=== PATIENT | female | born 1995 ===

== ENCOUNTER 2020-09-18 17:19 | Inpatient (IN) | payer BC ==
[2020-09-18] MEDS ORDERED: Misoprostol 200 MCG Tab PO PRN (17:51)
[2020-09-18] MEDS ORDERED: Water For Irrigation,Sterile 1,000 ML Container IRR PRN (17:51)
[2020-09-18] MEDS ORDERED: Tranexamic Acid 1,000 MG in Sodium Chloride 0.9% 100 ML IV PRN (17:51)
[2020-09-18] MEDS ORDERED: Sodium Chloride 0.9% 2.5 ML Syringe FLUSH PRN (17:51)
[2020-09-18] MEDS ORDERED: Lidocaine 1% 50 ML MDV INJECT PRN (17:51)
[2020-09-18] MEDS ORDERED: Butorphanol 1 MG/ML SDV IVPUSH PRN (17:51)
[2020-09-18] MEDS ORDERED: Sodium Chloride 0.9% 10 ML SDV IV PRN (17:51)
[2020-09-18] MEDS ORDERED: Carboprost Tromethamine 250 MCG/1 ML Amp IM PRN (17:51)
[2020-09-18] MEDS ORDERED: Sodium Chloride 0.9% 10 ML Syringe FLUSH PRN (17:51)
[2020-09-18] MEDS ORDERED: Methylergonovine 0.2 MG/1 ML Amp IM PRN (17:51)
[2020-09-18] MEDS ORDERED: Nalbuphine 10 MG/1 ML Vial IVPUSH PRN (17:51)
[2020-09-18] MEDS ORDERED: Misoprostol 25 MCG (1/4 of 100 MCG) Tab VAG PRN (17:55)
[2020-09-18] MEDS ORDERED: Terbutaline 1 MG/ML SDV SUBCUT PRN (17:55)
[2020-09-18] MEDS ORDERED: Oxytocin/0.9 % Sodium Chloride 30 UNIT/500 ML BAG IV SCH ×2 (18:00)
[2020-09-18] MEDS: Misoprostol 25 MCG (1/4 of 100 MCG) Tab VAG PRN (20:03)
[2020-09-19] MEDS: Misoprostol 25 MCG (1/4 of 100 MCG) Tab VAG PRN (00:21)
[2020-09-19] MEDS: Lactated Ringers 1,000 ML IV SCH ×3 (05:58→15:06)
[2020-09-19] MEDS ORDERED: Ropivacaine HCl/PF 100 ML ONE (12:15)
[2020-09-19] MEDS ORDERED: fentaNYL 100 MCG/2 ML SDV ONE (12:15)
[2020-09-19] MEDS ORDERED: Ropivacaine 0.2% PF 2 MG/ML 20 ML SDV ONE (12:15)
--- NOTE | 2020-09-19 12:56 | PCM.PREANE ---
Preanesthetic Assessment - Procedure Proposed Procedure: DARRYL - Anesthesia/Transfusion/Family Hx Anesthesia History: Prior Anesthesia Without Reaction Transfusion History: No Prior Transfusion(s) - Review of Systems General: No Symptoms Pulmonary: No Symptoms Cardiovascular: No Symptoms Gastrointestinal: No Symptoms Neurological: No Symptoms Other: Reports: Anxiety - Physical Assessment NPO Status Date: 09/19/20 NPO Status Time: 12:00 Height: 1.8 m Weight: 96.615 kg ASA Class: 1 Mental Status: Alert & Oriented x3 Airway Class: Mallampati = 1 Dentition: Reports: Normal Dentition Thyro-Mental Finger Breadths: 3 Mouth Opening Finger Breadths: 3 ROM/Head Extension: Full Lungs: Clear to Auscultation Cardiovascular: Regular Rate - Lab Values: Laboratory Last Values WBC 12.65 K/uL (4.0-11.0) H 09/18/20 17:30 RBC 4.08 M/uL (4.30-5.90) L 09/18/20 17:30 Hgb 13.0 g/dL (12.0-16.0) 09/18/20 17:30 Hct 39.6 % (36.0-46.0) 09/18/20 17:30 MCV 97.1 fL (80.0-98.0) 09/18/20 17:30 MCH 31.9 pg (27.0-32.0) 09/18/20 17:30 MCHC 32.8 g/dL (31.0-37.0) 09/18/20 17:30 RDW Std Deviation 46.8 fl (28.0-62.0) 09/18/20 17:30 RDW Coeff of Juaquin 13 % (11.0-15.0) 09/18/20 17:30 Plt Count 203 K/uL (150-400) 09/18/20 17:30 MPV 10.90 fL (7.40-12.00) 09/18/20 17:30 Nucleated RBC % 0.0 /100WBC 09/18/20 17:30 Nucleated RBCs # 0 K/uL 09/18/20 17:30 SARS-CoV-2 RNA (ANTONIA) NEGATIVE (NEGATIVE) 09/18/20 17:40 Blood Type O POSITIVE 09/18/20 17:30 Antibody Screen NEGATIVE 09/18/20 17:30 - Allergies Allergies/Adverse Reactions: Allergies Allergy/AdvReac Type Severity Reaction Status Date / Time No Known Allergies Allergy Verified 09/18/20 17:50 - Blood Blood Available: No Product(s) Available: None - Anesthesia Plan Pre-Op Medication Ordered: None - Acknowledgements Anesthesia Type Planned: Epidural Pt an Appropriate Candidate for the Planned Anesthesia: Yes Alternatives and Risks of Anesthesia Discussed w Pt/Guardian: Yes Pt/Guardian Understands and Agrees with Anesthesia Plan: Yes Additional Comments: , 5cm, active labor. Pain7/10. Discussed, ? answered, permit signed, wishes to proceed. 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: Musculoskeletal History: Reports: Fracture Neurological History: Reports: Concussion Psychiatric History: Reports: None Endocrine/Metabolic History: Reports: None Hematologic History: Reports: None Immunologic History: Reports: None Oncologic (Cancer) History: Reports: None Dermatologic History: Reports: None - Infectious Disease History Infectious Disease History: Reports: Chicken Pox - Past Surgical History HEENT Surgical History: Reports: None GI Surgical History: Reports: None Female Surgical History: Reports: None Musculoskeletal Surgical History: Reports: None - SUBSTANCE USE Tobacco Use Status *Q: Never Tobacco User Second Hand Smoke Exposure: No Recreational Drug Use History: No - CURRENT (IN HOUSE) MEDS Current Meds: Current Medications Butorphanol Tartrate (Stadol) 1 mg IVPUSH Q1H PRN PRN Reason: Pain Carboprost Tromethamine (Hemabate Ds) 250 mcg IM ASDIRECTED PRN PRN Reason: Post Hemorrhage Oxytocin/Sodium Chloride (Oxytocin 30 Unit/500 Ml-Ns) 30 unit in 500 mls @ 500 mls/hr IV TITRATE HUI Tranexamic Acid 1,000 mg/ (Sodium Chloride) 110 mls @ 660 mls/hr IV ONETIME PRN PRN Reason: Bleeding Lactated Ringer's (Ringers, Lactated) 1,000 mls @ 150 mls/hr IV ASDIRECTED HUI Last Admin: 09/19/20 11:27 Dose: 150 mls/hr Documented by: Oxytocin/Sodium Chloride (Oxytocin 30 Unit/500 Ml-Ns) 30 unit in 500 mls @ 2 mls/hr IV TITRATE HUI; Protocol Last Titration: 09/19/20 10:44 Dose: 14 munits/min, 14 mls/hr Documented by: Lidocaine HCl (Xylocaine 1%) 50 ml INJECT ONETIME PRN PRN Reason: Laceration repair Methylergonovine Maleate (Methergine) 0.2 mg IM ASDIRECTED PRN PRN Reason: Post Hemorrhage Misoprostol (Cytotec) 200 mcg PO ONETIME PRN PRN Reason: Post Hemorrhage Misoprostol (Cytotec) 25 mcg VAG ONETIME PRN PRN Reason: Cervical Ripening Misoprostol (Cytotec) 25 mcg VAG Q4H PRN PRN Reason: Cervical Ripening Last Admin: 09/19/20 00:21 Dose: 25 mcg Documented by: Nalbuphine HCl (Nubain) 10 mg IVPUSH Q1H PRN PRN Reason: Pain (severe 7-10) Sodium Chloride (Saline Flush) 10 ml FLUSH ASDIRECTED PRN PRN Reason: Keep Vein Open Sodium Chloride (Saline Flush) 2.5 ml FLUSH ASDIRECTED PRN PRN Reason: Keep Vein Open Sodium Chloride (Normal Saline) 10 ml IV ASDIRECTED PRN PRN Reason: IV Use Sterile Water (Sterile Water For Irrigation) 1,000 ml IRR ASDIRECTED PRN PRN Reason: delivery Terbutaline Sulfate (Brethine) 0.25 mg SUBCUT ASDIRECTED PRN PRN Reason: Tacysystole Discontinued Medications Fentanyl (Sublimaze) Confirm Administered Dose 100 mcg .ROUTE .STK-MED ONE Stop: 09/19/20 12:16 Ropivacaine (Naropin 0.2%) Confirm Administered Dose 100 mls @ as directed .ROUTE .STK-MED ONE Stop: 09/19/20 12:16 Ropivacaine (Naropin 0.2%) Confirm Administered Dose 20 ml .ROUTE .STK-MED ONE Stop: 09/19/20 12:16
[2020-09-19] MEDS ORDERED: oxyCODONE 5 MG Tab PO PRN (18:35)
[2020-09-19] MEDS ORDERED: Lanolin 100% Cream 7 GM Tube TOP PRN (18:35)
[2020-09-19] MEDS ORDERED: Witch Hazel Medicated Pads 40/Jar TOP PRN (18:35)
[2020-09-19] MEDS ORDERED: Bisacodyl 10 MG Supp RECTAL PRN (18:35)
[2020-09-19] MEDS ORDERED: Benzocaine/Menthol 20%-0.5% Spray 78 GM Cannister TOP PRN (18:35)
--- NOTE | 2020-09-19 18:41 | PCM.DEL ---
L & D Note - General Info Date of Service: 09/19/20 Mother's Due Date: 09/23/20 - Delivery Note Labor: Induced by Oxytocin Cervical Ripening Method: Misoprostil Delivery Outcome: Livebirth Infant Delivery Method: Spontaneous Vaginal Delivery-Single Presentation: Left Occiput Anterior (JEWELS) Nuchal Cord: None Anesthesia Type: Epidural, Local Anesthetic: Lidocaine (Xylocaine) 1% Plain Amniotic Fluid Description: Clear Episiotomy Type: None Laceration: 2nd Degree, Periurethral (right) Suture type: Vicryl Suture size: 2-0 Placenta: Intact, Spontaneous Cord: 3 Vessels Estimated Blood Loss: 400 Resuscitation Needed: Yes : Suctioned, Stimulated, Warmed Provider: Yumiko Daly Score 1 min: 7 Score 5 min: 9 Delivery Comments (Free Text/Narrative):: Weight 4210g, male - General Info Date of Service: 09/19/20 - Patient Data Weight - Most Recent: 96.615 kg Lab Results Last 24 Hours: Laboratory Results - last 24 hr 09/18/20 09/18/20 Range/Units 17:30 17:40 SARS-CoV-2 RNA (ANTONIA) NEGATIVE (NEGATIVE) Blood Type O POSITIVE Antibody Screen NEGATIVE Med Orders - Current: Current Medications Acetaminophen (Tylenol Extra Strength) 1,000 mg PO Q6H PRN PRN Reason: Pain Benzocaine/Menthol (Dermoplast Pain Relief 20%-0.5% [place]) 78 gm TOP ASDIRECTED PRN PRN Reason: Perineal Comfort Measure Bisacodyl (Dulcolax) 10 mg RECTAL ONETIME PRN PRN Reason: Constipation Docusate Sodium (Colace) 100 mg PO BID PRN PRN Reason: Constipation Emollient Ointment (Lansinoh Hpa) 0 gm TOP ASDIRECTED PRN PRN Reason: Sore Nipples Oxytocin/Sodium Chloride (Oxytocin 30 Unit/500 Ml-Ns) 30 unit in 500 mls @ 500 mls/hr IV TITRATE HUI Lactated Ringer's (Ringers, Lactated) 1,000 mls @ 150 mls/hr IV ASDIRECTED HUI Last Admin: 09/19/20 15:06 Dose: 150 mls/hr Documented by: Oxytocin/Sodium Chloride (Oxytocin 30 Unit/500 Ml-Ns) 30 unit in 500 mls @ 2 mls/hr IV TITRATE HUI; Protocol Last Titration: 09/19/20 14:26 Dose: 2 munits/min, 2 mls/hr Documented by: Ibuprofen (Motrin) 800 mg PO Q8H PRN PRN Reason: Pain Lidocaine HCl (Xylocaine 1%) 50 ml INJECT ONETIME PRN PRN Reason: Laceration repair Misoprostol (Cytotec) 25 mcg VAG ONETIME PRN PRN Reason: Cervical Ripening Misoprostol (Cytotec) 25 mcg VAG Q4H PRN PRN Reason: Cervical Ripening Last Admin: 09/19/20 00:21 Dose: 25 mcg Documented by: Oxycodone HCl (Oxycodone) 5 mg PO Q2H PRN PRN Reason: Pain Sodium Chloride (Saline Flush) 10 ml FLUSH ASDIRECTED PRN PRN Reason: Keep Vein Open Sodium Chloride (Saline Flush) 2.5 ml FLUSH ASDIRECTED PRN PRN Reason: Keep Vein Open Sodium Chloride (Normal Saline) 10 ml IV ASDIRECTED PRN PRN Reason: IV Use Sterile Water (Sterile Water For Irrigation) 1,000 ml IRR ASDIRECTED PRN PRN Reason: delivery Terbutaline Sulfate (Brethine) 0.25 mg SUBCUT ASDIRECTED PRN PRN Reason: Tacysystole Witch Susana (Tucks) 1 pad TOP ASDIRECTED PRN PRN Reason: comfort care Discontinued Medications Butorphanol Tartrate (Stadol) 1 mg IVPUSH Q1H PRN PRN Reason: Pain Carboprost Tromethamine (Hemabate Ds) 250 mcg IM ASDIRECTED PRN PRN Reason: Post Hemorrhage Fentanyl (Sublimaze) Confirm Administered Dose 100 mcg .ROUTE .STK-MED ONE Stop: 09/19/20 12:16 Tranexamic Acid 1,000 mg/ (Sodium Chloride) 110 mls @ 660 mls/hr IV ONETIME PRN PRN Reason: Bleeding Ropivacaine (Naropin 0.2%) Confirm Administered Dose 100 mls @ as directed .ROUTE .STK-MED ONE Stop: 09/19/20 12:16 Methylergonovine Maleate (Methergine) 0.2 mg IM ASDIRECTED PRN PRN Reason: Post Hemorrhage Misoprostol (Cytotec) 200 mcg PO ONETIME PRN PRN Reason: Post Hemorrhage Nalbuphine HCl (Nubain) 10 mg IVPUSH Q1H PRN PRN Reason: Pain (severe 7-10) Ropivacaine (Naropin 0.2%) Confirm Administered Dose 20 ml .ROUTE .STK-MED ONE Stop: 09/19/20 12:16 - Problem List & Annotations (1) Vaginal delivery SNOMED Code(s): 399792927 Code(s): O80 - ENCOUNTER FOR FULL-TERM UNCOMPLICATED DELIVERY Status: Acute Current Visit: Yes - Problem List Review Problem List Initiated/Reviewed/Updated: Yes - My Orders Last 24 Hours: My Active Orders 09/18/20 17:51 Patient Status [ADT] Routine Lidocaine 1% [Xylocaine 1%] 50 ml INJECT ONETIME PRN Sodium Chloride 0.9% [Normal Saline] 10 ml IV ASDIRECTED PRN Sodium Chloride 0.9% [Saline Flush] 10 ml FLUSH ASDIRECTED PRN Sodium Chloride 0.9% [Saline Flush] 2.5 ml FLUSH ASDIRECTED PRN Water For Irrigation,Sterile [Sterile Water for Irrigation] 1,000 ml IRR ASDIRECTED PRN Peripheral IV Insertion Adult [OM.PC] Routine Resuscitation Status Routine 09/18/20 17:55 Bedrest Bathroom Privileges [RC] ASDIRECTED Notify Provider [RC] PRN Notify Provider [RC] PRN Notify Provider [RC] STAT Vital Signs [RC] PER UNIT ROUTINE Terbutaline [Brethine] 0.25 mg SUBCUT ASDIRECTED PRN miSOPROStoL [Cytotec] 25 mcg VAG ONETIME PRN miSOPROStoL [Cytotec] 25 mcg VAG Q4H PRN 09/18/20 18:00 Lactated Ringers [Ringers, Lactated] 1,000 ml IV ASDIRECTED Oxytocin/0.9 % Sodium Chloride [Oxytocin 30 Unit/500 ML-NS] 30 unit in 500 ml IV TITRATE Oxytocin/0.9 % Sodium Chloride [Oxytocin 30 Unit/500 ML-NS] 30 unit in 500 ml IV TITRATE Medication Administration Instruction [OM.PC] Q3H 09/19/20 Dinner Regular Diet [DIET] 09/19/20 18:35 Patient Status [ADT] Routine May Shower [RC] ASDIRECTED Notify Provider Vital Signs [RC] ASDIRECTED Up ad Karlene [RC] ASDIRECTED Vital Signs [RC] PER UNIT ROUTINE Acetaminophen [Tylenol Extra Strength] 1,000 mg PO Q6H PRN Benzocaine/Menthol [Dermoplast Pain Relief 20%-0.5% [place]] 78 gm TOP ASDIRECTED PRN Docusate Sodium [Colace] 100 mg PO BID PRN Ibuprofen [Motrin] 800 mg PO Q8H PRN Lanolin [Lansinoh HPA] See Dose Instructions TOP ASDIRECTED PRN bisacodyL [Dulcolax] 10 mg RECTAL ONETIME PRN oxyCODONE 5 mg PO Q2H PRN witch Susana [Tucks] 1 pad TOP ASDIRECTED PRN Assess Lochia [WOMSER] Per Unit Routine Assess Uterine Involution [WOMSER] Per Unit Routine Breast Pump [WOMSER] Per Unit Routine Peripheral IV Discontinue [OM.PC] Routine 09/19/20 18:36 Cooling Warming Measures [RC] ASDIRECTED Ice Therapy [OM.PC] Per Unit Routine Perineal Care [OM.PC] Per Unit Routine Sitz Bath [OM.PC] Per Unit Routine 09/20/20 05:11 HEMOGLOBIN/HEMATOCRIT,HH [HEME] Timed - Assessment Assessment:: 24yo s/p at 39w3d - Plan Plan:: Admit to unit for routine care. Plans to breastfeed, encouraged asking nursing for support.
--- NOTE | 2020-09-19 19:39 | OR ---
SURGEON: Romina Phillip MD DATE OF PROCEDURE: 09/19/2020 PREOPERATIVE DIAGNOSES: 1. 24-year-old, G1, P0 at 39 weeks and 2 days gestation. 2. Elective induction of labor. 3. GBS negative. 4. Estimated weight 4400 g. POSTOPERATIVE DIAGNOSES: 1. 24-year-old, G1, P1001 at 39 weeks and 3 days gestation. 2. GBS negative 3. Second degree perineal laceration. PROCEDURE: Spontaneous vaginal delivery and repair of second-degree perineal laceration. PRIMARY SURGEON: Romina Phillpi MD. ANESTHESIA: Epidural and local. ESTIMATED BLOOD LOSS: 400 mL. FINDINGS: Live male in left occiput anterior position. score 7 and 9 at one and five minutes respectively. Weight 4210 g. Placenta intact with 3-vessel cord. Second-degree perineal and right periurethral laceration. INDICATIONS: This is a 24-year-old, G1, P0 who presented at 39 weeks and 2 days gestation for a scheduled elective induction of labor. Estimated weight was 4400 g on ultrasound. Upon presentation, the patient's cervix was found to be closed. She received 2 doses of Cytotec for cervical ripening and she began tish. She was changed to Pitocin for induction of labor. She received an epidural for pain control at approximately 5 to 6 cm dilated. She underwent artificial rupture of membranes with clear fluid noted at 8 cm dilated. She progressed to complete cervical dilation and began pushing. DESCRIPTION OF PROCEDURE: The patient pushed for approximately 1-1/2 hour. The head was delivered followed quickly and easily by the shoulders and remainder of the body. The was placed on maternal abdomen. After approximately 60 seconds, the placenta then cut. The was then taken to the warmer for evaluation by the nurse and economic history teacher. The placenta then delivered intact with 3-vessel cord. Fundus was firm below the umbilicus. The perineum was inspected and a second-degree perineal laceration and a right periurethral laceration were noted. The perineal laceration was infiltrated with lidocaine for pain control and repaired to anatomy and hemostasis with 2-0 Vicryl. The periurethral laceration was hemostatic without repair. The patient and tolerated the delivery well. [id number] / MODL /[id number] CAROL ANN
[2020-09-19] MEDS: Ibuprofen 800 MG Tab PO PRN (20:47)
[2020-09-19] MEDS: Docusate Sodium 100 MG Cap PO PRN (20:48)
--- NOTE | 2020-09-20 09:29 | PCM48HPAN ---
Post Anesthesia Note - EVALUATION WITHIN 48HRS OF ANESTHETIC Vital Signs in Normal Range: Yes Patient Participated in Evaluation: Yes Respiratory Function Stable: Yes Airway Patent: Yes Cardiovascular Function Stable: Yes Hydration Status Stable: Yes Pain Control Satisfactory: Yes Nausea and Vomiting Control Satisfactory: Yes Mental Status Recovered: Yes Vital Signs: Last Vital Signs Temp 36.4 C 09/20/20 09:19 Pulse 73 09/20/20 09:19 Resp 16 09/20/20 09:19 BP 112/57 L 09/20/20 09:19 Pulse Ox 96 09/20/20 09:19 - COMMENTS/OBSERVATIONS Free Text/Narrative:: Doing well. No problems noted.
--- NOTE | 2020-09-20 09:44 | PCM.PNPP ---
- General Info Date of Service: 09/20/20 Subjective Update: Doing well this morning, minimal pain. going well today. Functional Status: Reports: Pain Controlled, Tolerating Diet, Ambulating, Urinating (f) - Review of Systems General: Reports: No Symptoms HEENT: Reports: No Symptoms Pulmonary: Reports: No Symptoms Cardiovascular: Reports: No Symptoms Gastrointestinal: Reports: No Symptoms Genitourinary: Reports: No Symptoms Musculoskeletal: Reports: No Symptoms Skin: Reports: No Symptoms Neurological: Reports: No Symptoms Psychiatric: Reports: No Symptoms - Patient Data Vital Signs - Most Recent: Last Vital Signs Temp 36.4 C 09/20/20 09:19 Pulse 73 09/20/20 09:19 Resp 16 09/20/20 09:19 BP 112/57 L 09/20/20 09:19 Pulse Ox 96 09/20/20 09:19 Weight - Most Recent: 96.615 kg Lab Results - Last 24 Hours: Laboratory Results - last 24 hr 09/20/20 Range/Units 06:05 Hgb 11.3 L (12.0-16.0) g/dL Hct 34.3 L (36.0-46.0) % Med Orders - Current: Current Medications Acetaminophen (Tylenol Extra Strength) 1,000 mg PO Q6H PRN PRN Reason: Pain Benzocaine/Menthol (Dermoplast Pain Relief 20%-0.5% [place]) 78 gm TOP ASDIRECTED PRN PRN Reason: Perineal Comfort Measure Last Admin: 09/19/20 20:49 Dose: 1 canister Documented by: Bisacodyl (Dulcolax) 10 mg RECTAL ONETIME PRN PRN Reason: Constipation Docusate Sodium (Colace) 100 mg PO BID PRN PRN Reason: Constipation Last Admin: 09/19/20 20:48 Dose: 100 mg Documented by: Emollient Ointment (Lansinoh Hpa) 0 gm TOP ASDIRECTED PRN PRN Reason: Sore Nipples Last Admin: 09/19/20 20:48 Dose: 1 tube Documented by: Oxytocin/Sodium Chloride (Oxytocin 30 Unit/500 Ml-Ns) 30 unit in 500 mls @ 500 mls/hr IV TITRATE HUI Lactated Ringer's (Ringers, Lactated) 1,000 mls @ 150 mls/hr IV ASDIRECTED HUI Last Admin: 09/19/20 15:06 Dose: 150 mls/hr Documented by: Oxytocin/Sodium Chloride (Oxytocin 30 Unit/500 Ml-Ns) 30 unit in 500 mls @ 2 mls/hr IV TITRATE HUI; Protocol Last Titration: 09/19/20 18:10 Dose: 500 munits/min, 500 mls/hr Documented by: Ibuprofen (Motrin) 800 mg PO Q8H PRN PRN Reason: Pain Last Admin: 09/19/20 20:47 Dose: 800 mg Documented by: Lidocaine HCl (Xylocaine 1%) 50 ml INJECT ONETIME PRN PRN Reason: Laceration repair Misoprostol (Cytotec) 25 mcg VAG ONETIME PRN PRN Reason: Cervical Ripening Misoprostol (Cytotec) 25 mcg VAG Q4H PRN PRN Reason: Cervical Ripening Last Admin: 09/19/20 00:21 Dose: 25 mcg Documented by: Oxycodone HCl (Oxycodone) 5 mg PO Q2H PRN PRN Reason: Pain Sodium Chloride (Saline Flush) 10 ml FLUSH ASDIRECTED PRN PRN Reason: Keep Vein Open Sodium Chloride (Saline Flush) 2.5 ml FLUSH ASDIRECTED PRN PRN Reason: Keep Vein Open Sodium Chloride (Normal Saline) 10 ml IV ASDIRECTED PRN PRN Reason: IV Use Sterile Water (Sterile Water For Irrigation) 1,000 ml IRR ASDIRECTED PRN PRN Reason: delivery Terbutaline Sulfate (Brethine) 0.25 mg SUBCUT ASDIRECTED PRN PRN Reason: Tacysystole Witch Zahida (Tucks) 1 pad TOP ASDIRECTED PRN PRN Reason: comfort care Last Admin: 09/19/20 20:49 Dose: 1 tub Documented by: Discontinued Medications Butorphanol Tartrate (Stadol) 1 mg IVPUSH Q1H PRN PRN Reason: Pain Carboprost Tromethamine (Hemabate Ds) 250 mcg IM ASDIRECTED PRN PRN Reason: Post Hemorrhage Fentanyl (Sublimaze) Confirm Administered Dose 100 mcg .ROUTE .STK-MED ONE Stop: 09/19/20 12:16 Tranexamic Acid 1,000 mg/ (Sodium Chloride) 110 mls @ 660 mls/hr IV ONETIME PRN PRN Reason: Bleeding Ropivacaine (Naropin 0.2%) Confirm Administered Dose 100 mls @ as directed .ROUTE .STK-MED ONE Stop: 09/19/20 12:16 Methylergonovine Maleate (Methergine) 0.2 mg IM ASDIRECTED PRN PRN Reason: Post Hemorrhage Misoprostol (Cytotec) 200 mcg PO ONETIME PRN PRN Reason: Post Hemorrhage Nalbuphine HCl (Nubain) 10 mg IVPUSH Q1H PRN PRN Reason: Pain (severe 7-10) Ropivacaine (Naropin 0.2%) Confirm Administered Dose 20 ml .ROUTE .STK-MED ONE Stop: 09/19/20 12:16 - Infant Interaction Disposition, : in Room with Family Infant Interaction: Holding Infant Feeding: Breastfed ; Nursed Well Support Person: - Recovery Exam Fundal Tone: Firm Fundal Level: 3 Fingerbreadths Below Umbilicus Fundal Placement: Midline Lochia Amount: Small Lochia Color: Rubra/Red Bladder Status: Nonpalpable, Voiding Urinary Elimination: Voided - Exam General: Alert, Oriented Neck: Supple Lungs: Normal Respiratory Effort GI/Abdominal Exam: Soft, Non-Tender, No Distention Extremities: No Pedal Edema Skin: Warm, Dry, Intact Neurological: No New Focal Deficit Psy/Mental Status: Alert, Normal Affect, Normal Mood - Problem List & Annotations (1) Vaginal delivery SNOMED Code(s): 239828267 Code(s): O80 - ENCOUNTER FOR FULL-TERM UNCOMPLICATED DELIVERY Status: Acute Current Visit: Yes - Problem List Review Problem List Initiated/Reviewed/Updated: Yes - My Orders Last 24 Hours: My Active Orders 09/19/20 Dinner Regular Diet [DIET] 09/19/20 18:35 Patient Status [ADT] Routine May Shower [RC] ASDIRECTED Notify Provider Vital Signs [RC] ASDIRECTED Up ad Karlene [RC] ASDIRECTED Vital Signs [RC] PER UNIT ROUTINE Acetaminophen [Tylenol Extra Strength] 1,000 mg PO Q6H PRN Benzocaine/Menthol [Dermoplast Pain Relief 20%-0.5% [place]] 78 gm TOP ASDIRECTED PRN Docusate Sodium [Colace] 100 mg PO BID PRN Ibuprofen [Motrin] 800 mg PO Q8H PRN Lanolin [Lansinoh HPA] See Dose Instructions TOP ASDIRECTED PRN bisacodyL [Dulcolax] 10 mg RECTAL ONETIME PRN oxyCODONE 5 mg PO Q2H PRN witch Zahida [Tucks] 1 pad TOP ASDIRECTED PRN Assess Lochia [WOMSER] Per Unit Routine Assess Uterine Involution [WOMSER] Per Unit Routine Breast Pump [WOMSER] Per Unit Routine Peripheral IV Discontinue [OM.PC] Routine 09/19/20 18:36 Cooling Warming Measures [RC] ASDIRECTED Ice Therapy [OM.PC] Per Unit Routine Perineal Care [OM.PC] Per Unit Routine Sitz Bath [OM.PC] Per Unit Routine 09/20/20 09:42 Ready for Discharge [RC] PER UNIT ROUTINE - Assessment Assessment:: 24yo s/p at 39w3d, PPD#1 - Plan Plan:: Patient desires discharge home this evening if cleared by Grinder Set Up Operator External. Reviewed discharge instructions/precautions. Encouraged patient to ask questions of nursing staff today for best success with . All questions answered.
[2020-09-20] MEDS: Docusate Sodium 100 MG Cap PO PRN ×2 (10:51→20:32)
[2020-09-20] MEDS: Ibuprofen 800 MG Tab PO PRN (10:52)
[2020-09-20] MEDS: Acetaminophen 500 MG Tab PO PRN ×2 (10:53→20:32)
== END 2020-09-20 19:03 | disposition home or self-care (01) | DRG 560 ==
LOC: MW.OBCHECK 17:19 → MW.OB 17:21 → MW.OBCHECK 17:51 → INTOOBSV 18:07 → OBSVTOIN 18:07 → MW.OB 09-19 22:29
PROVIDERS: ADMIT Obstetrics & Gynecology; ATTEND Obstetrics & Gynecology
PROC: 10E0XZZ Delivery of Products of Conception, External Approach (ICD-10-PCS; principal; 2020-09-19)
PROC: 10907ZC Drainage of Amniotic Fluid, Therapeutic from Products of Conception, Via Natural or Artificial Opening (ICD-10-PCS; 2020-09-19)
PROC: 3E0P7VZ Introduction of Hormone into Female Reproductive, Via Natural or Artificial Opening (ICD-10-PCS; 2020-09-19)
PROC: 3E033VJ Introduction of Other Hormone into Peripheral Vein, Percutaneous Approach (ICD-10-PCS; 2020-09-19)
PROC: 0KQM0ZZ Repair Perineum Muscle, Open Approach (ICD-10-PCS; 2020-09-19)
PROC: 0UQMXZZ Repair Vulva, External Approach (ICD-10-PCS; 2020-09-19)
PROC: 3E0R3BZ Introduction of Anesthetic Agent into Spinal Canal, Percutaneous Approach (ICD-10-PCS; 2020-09-19)
PROC: 00HU33Z Insertion of Infusion Device into Spinal Canal, Percutaneous Approach (ICD-10-PCS; 2020-09-19)
DX: O70.1 Second degree perineal laceration during delivery (principal); Z37.0 Single live birth; Z3A.39 39 weeks gestation of pregnancy; Z20.822 Contact with and (suspected) exposure to COVID-19
CPT/HCPCS: 36415; 51702; 59025; 59409; 85014; 85018; 85027; 86592; 86850; 86900; 86901; A9270-GY; J2590; J2795; J3010; J7120; U0002